=== PATIENT | male | born 1985 ===

== ENCOUNTER → 2019-11-24 | Outpatient (REF) ==
--- NOTE | 2019-11-24 12:35 | Diagnostic Imaging Report ---
INDICATION: Right knee pain. FINDINGS: AP, oblique, and lateral views of the right knee are obtained. There is mild joint space narrowing most pronounced in the medial compartment of the right knee. No fracture or malalignment is identified. There may be joint effusion present without lipohemarthrosis. IMPRESSION: Mild degenerative findings in the medial compartment of the knee without other evidence of acute osseous abnormality. Dictated by: Dictated on workstation # [id number]
== END | disposition home or self-care (01) ==
LOC: OCC 11:59
PROVIDERS: ATTEND Family Medicine
CPT/HCPCS: 73562